=== PATIENT | female | born 1940 | race Caucasian/White ===

== ENCOUNTER 2017-12-07 12:34 | Emergency (ER) | payer OTHER ==
--- OUTSIDE RECORDS SUMMARY | 2017-12-07 12:37 | XMS REPORT | Clinical Summary ---
:1940 Author Organization [facility] Address [address] [place] [address] Care Team Providers Name Role Phone Asked, No Pcp Primary Care Provider Unavailable Allergies Active Allergy Reactions Severity Noted Date Comments Artane 12/21/2015 Aspirin 12/21/2015 Meperidine 12/21/2015 Diclofenac 12/21/2015 Indomethacin 12/21/2015 Metronidazole 12/21/2015 Other 12/21/2015 msg Penicillins 12/21/2015 Potassium Iodide 12/21/2015 Tetracycline 12/21/2015 Talwin Compound 12/21/2015 Tolmetin 12/21/2015 Tramadol-Acetaminophen Other (See Comments) 10/13/2017 Dizziness, Blood Pressure Problems Diazepam 12/21/2015 Rofecoxib 12/21/2015 Current Medications Prescription Sig. Disp. Refills Start Date End Date Status amLODIPine Take 5 mg by 10/11/2015 Active (NORVASC) 5 MG mouth 2 (two) tablet times a day. carvedilol (COREG) Take 25 mg by 10/09/2015 Active 25 MG tablet mouth 2 (two) times a day. DILANTIN EXTENDED Take 150 mg by 10/23/2015 Active 100 mg ER capsule mouth daily. calcium Take 1 tablet Active citrate-vitamin D3 by mouth 2 (CITRACAL+D) (two) times a 315-200 mg-unit per day. tablet multivitamin with Take 1 tablet Active minerals tablet by mouth daily. artificial 1 drop as Active tears,hypromellose, needed. (SYSTANE) 0.3 % gel cholecalciferol, Take 1,000 Active vitamin D3, Units by mouth (VITAMIN D3) 1,000 daily. unit tablet phenytoin Chew 50 mg Active (DILANTIN) 50 mg daily. chewable tablet furosemide (LASIX) 04/05/2017 Active 40 mg tablet doxazosin (CARDURA) 02/23/2017 Active 4 MG tablet levETIRAcetam Take 500 mg by 02/15/2017 Active (KEPPRA) 500 MG mouth 2 (two) tablet times a day. rosuvastatin 03/04/2017 Active (CRESTOR) 20 MG tablet sennosides (NATURAL Take 1 tablet Active LAXATIVE) 25 mg by mouth as tablet needed. fexofenadine Take 60 mg by Active (SHAKIRA) 60 MG mouth daily. tablet azaTHIOprine TAKE 3 TABLETS 270 tablet 3 06/17/2017 Active (IMURAN) 50 mg (150 MG) EVERY 9 tablet DAY predniSONE TAKE 2 TABLETS 180 tablet 0 09/07/2017 Active (DELTASONE) 1 mg EVERY DAY 9 tablet predniSONE TAKE 1 TO 4 360 tablet 1 11/05/2017 Active (DELTASONE) 5 mg TABLETS EVERY 9 tablet MORNING DIRECTED DURING VISIT doxazosin (CARDURA) 8 mg daily. 10/09/2015 Discontinued 1 MG tablet 7 levETIRAcetam Take 500 mg by 10/09/2015 (KEPPRA) 500 MG mouth 2 (two) 7 tablet times a day. triamterene-hydroch Take 1 tablet 10/09/2015 Discontinued lorothiazid by mouth 7 (MAXZIDE-25) daily. 37.5-25 mg per tablet predniSONE TAKE 2 TABLETS 180 tablet 1 10/01/2016 Discontinued (DELTASONE) 1 mg EVERY DAY 7 tablet rosuvastatin Take 10 mg by Discontinued (CRESTOR) 10 MG mouth daily. 7 tablet azaTHIOprine Take 3 tablets 270 tablet 1 10/08/2016 Discontinued (IMURAN) 50 mg (150 mg total) 7 tablet by mouth daily. predniSONE TAKE 1 TO 4 180 tablet 1 11/18/2016 Discontinued (DELTASONE) 5 mg TABLETS EVERY 7 tablet MORNING DIRECTED DURING VISIT predniSONE TAKE 2 TABLETS 180 tablet 1 12/22/2016 Discontinued (DELTASONE) 1 mg EVERY DAY 8 tablet azaTHIOprine TAKE 3 TABLETS 270 tablet 1 2016 Discontinued (IMURAN) 50 mg (150 MG TOTAL) 8 tablet DAILY predniSONE TAKE 1 TO 4 360 tablet 1 01/19/2017 Discontinued (DELTASONE) 5 mg TABLETS EVERY 8 tablet MORNING DIRECTED DURING VISIT predniSONE TAKE 1 TO 4 360 tablet 1 06/15/2017 Discontinued (DELTASONE) 5 mg TABLETS EVERY 8 tablet MORNING DIRECTED DURING VISIT predniSONE TAKE 2 TABLETS 180 tablet 0 07/06/2017 Discontinued (DELTASONE) 1 mg EVERY DAY 8 tablet Active Problems Problem Noted Date Localized edema 10/13/2017 Right foot pain 04/13/2017 Primary osteoarthritis of right shoulder 10/08/2016 Inflammatory arthritis 10/08/2016 Chronic right shoulder pain 04/10/2016 Renal insufficiency 01/09/2016 Diastolic dysfunction 01/09/2016 Hypercalcemia 01/09/2016 Erythema nodosum 12/21/2015 Overview: Ankle arthritis. No underlying disease ever found. 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 COPD (chronic obstructive pulmonary disease) 12/21/2015 Seizure 12/21/2015 Osteopenia 12/21/2015 HTN (hypertension) 12/21/2015 Dry eyes 12/21/2015 Encounters Date Type Specialty Care Team Description 11/04/2017 Refill Rheumatology Gisell Up MD 10/14/2017 Orders Only Rheumatology ProviderCesar MD 10/13/2017 Office Visit Rheumatology Gisell Up Erythema nodosum ( Primary Dx); Renal insufficiency; Localized edema; Inflammatory arthritis 09/07/2017 Refill Rheumatology Gisell Up MD 07/03/2017 Refill Rheumatology Gisell Up MD 06/17/2017 Refill Rheumatology Gisell Up MD 06/15/2017 Refill Rheumatology Gisell Up MD 04/14/2017 Orders Only Rheumatology ProviderCesar MD 04/13/2017 Hospital Encounter Radiology Gisell Up, Right foot pain 04/13/2017 Office Visit Rheumatology Gisell Up, Subdeltoid bursitis, right (Primary Dx); Erythema nodosum; Primary osteoarthritis of right shoulder; High risk medication use; Hypercalcemia; Chronic renal insufficiency, stage III (moderate); Right foot pain 01/19/2017 Refill Rheumatology Gisell Up MD 12/22/2016 Refill Rheumatology Gisell Up MD 12/21/2016 Refill Rheumatology Gisell Up MD after 12/06/2016 Family History Medical History Relation Name Comments Merced's thyroiditis Other granddaughter Relation Name Status Comments Other granddaughter Social History Tobacco Use Types Packs/Day Years Used Date Unknown If Ever Smoked Smokeless Tobacco: Never Used Sex Assigned at Date Recorded Not on file Last Filed Vital Signs Vital Sign Reading Time Taken Blood Pressure 175/85 10/13/2017 11:12 AM CDT Pulse 76 10/13/2017 11:12 AM CDT Temperature - - Respiratory Rate - - Oxygen Saturation - - Inhaled Oxygen Concentration - - Weight 66.2 kg (146 lb) 10/13/2017 11:12 AM CDT Height 162.6 cm (5' 4") 10/13/2017 11:12 AM CDT Body Mass Index 25.06 10/13/2017 11:12 AM CDT Plan of Treatment Date Type Specialty Care Team Description 04/26/2018 [place] [address] [place] [address] [phone] Health Maintenance Due Date Last Done Comments SHINGRIX VACCINE (#1) 12/22/1989 ZOSTER VACCINE 1999 PNEUMOCOCCAL POLYSACCHARIDE VACCINE AGE 65 AND OVER 12/22/2004 PNEUMOCOCCAL-13 12/22/2004 INFLUENZA VACCINE 12/30/2017 Procedures Procedure Name Priority Date/Time Associated Comments Diagnosis [id number] Routine 10/12/2017 12:00 AM CDT [id number] Routine 07/08/2017 12:00 AM [employer] XR HIP 1 VIEW RIGHT Routine 07/03/2017 12:00 AM [employer] XR FOOT 3+ VW RIGHT Routine 04/13/2017 12:21 Right foot pain Results for this PM [employer] procedure are in the results section. WI ARTHROCENTESIS Routine 04/13/2017 11:23 Subdeltoid Results for this ASPIR&/INJ MAJOR AM [employer] bursitis, right procedure are in JT/BURSA W/O US the results section. [id number] Routine 04/08/2017 12:00 AM [employer] [id number] Routine 01/05/2017 12:00 AM CDT after 12/06/2016 Results Miscellaneous Lab Result (10/12/2017)Only the most recent of4 resultswithin the time period is included. Specimen Blood Narrative Performed At XR Hip 1 View Right (07/03/2017) Narrative Performed At XR Foot 3+ Vw Right (04/13/2017 12:21 PM) Narrative Performed At EXAMINATION:XR FOOT 3VW RIGHT [facility] CLINICAL HISTORY:M79.671 Pain in right foot, Pain right mid-tarsus area.History of erythemat nodosum.No synovitis. COMPARISON:None available at this time. IMPRESSION: 1. No fracture, malalignment, or osseous destructive lesion of the right foot. 2. Joint spaces are maintained. No significant degenerative changes. 3. Soft tissues are unremarkable. [id number] Procedure Note Hm Interface, Radiology Results Incoming - 04/13/2017 1:12 PM [employer] EXAMINATION: XR FOOT 3 VW RIGHT CLINICAL HISTORY: M79.671 Pain in right foot, Pain right mid-tarsus area. History of erythemat nodosum. No synovitis. COMPARISON: None available at this time. IMPRESSION: 1. No fracture, malalignment, or osseous destructive lesion of the right foot. 2. Joint spaces are maintained. No significant degenerative changes. 3. Soft tissues are unremarkable. [id number] Performing Organization Address City/State/Zipcode Phone Number [facility] [address] [place] [address] Large Joint Arthrocentesis (04/13/2017 11:23 AM) Narrative Performed At Gisell Up MD 04/13/2017 11:23 AM Large Joint Arthrocentesis Consent given by: patient Supporting Documentation Indications: pain Procedure Details Ultrasound guided: no Platelet Rich Plasma Used: no PRP UsedLocation: shoulder - R subacromial bursa Right side: Needle size: 23 G Approach: lateral Right shoulder medications administered: 1 mL lidocaine 10 mg/mL (1 %); 40 mg methylPREDNISolone acetate 80 mg/mL after 12/06/2016 Insurance Payer Benefit Plan / Group Subscriber ID Type Phone Address [employer]ARE HU[employer] MEDICARE PPO/PFFS/[facility] xxxxxxxxx PPO Work: [id number] [phone] [place] [phone] Home:
[2017-12-07] MEDS ORDERED: HEPARIN/D5W 25,000 UNIT/500 ML BAG IV ONE (16:22)
--- NOTE | 2017-12-07 16:28 | ER ---
Nurse's Notes [facility] Name: Criselda Medellin Age: 76 yrs Sex: Female : 1940 Arrival Date: 12/07/2017 Time: 12:37 Bed 18 Private MD: Singh Bauman L Diagnosis: Acute embolism and thrombosis of other specified deep vein of lower extremity Presentation: 12/07 12:40 Presenting complaint: Patient states: right lower leg swelling since Thursday. Pt's aa5 daughter states "Dr. Bauman put her on Eliquis for a blood clot but the leg swelling is getting worse now". Transition of care: patient was not received from another setting of care. Onset of symptoms was November 2017. Risk Assessment: Do you want to hurt yourself or someone else? Patient reports no desire to harm self or others. Initial Sepsis Screen: Does the patient meet any 2 criteria? No. Patient's initial sepsis screen is negative. Does the patient have a suspected source of infection? No. Patient's initial sepsis screen is negative. Care prior to arrival: None. 12:40 Method Of Arrival: Wheelchair aa5 12:40 Acuity: LIZ 3 aa5 Historical: - Allergies: 12:44 PROPOFOL; aa5 12:44 Aspirin; aa5 12:44 Demerol; aa5 12:44 PENTAZOCINE; aa5 12:44 potassium iodide; aa5 12:44 METRONIDAZOLE; aa5 12:44 TETRACYCLINES; aa5 12:44 Indomethacin; aa5 12:44 PENICILLINS; aa5 12:44 Rofecoxib; aa5 12:44 diazepam; aa5 - PMHx: 12:44 COPD; Seizures; Migraines; vertigo; picepital tendonitis; bursitis; ulnar neuropathy; aa5 erythema nodosum; Rheumatoid Arthritis; Osteoporosis; Hypertension; - PSHx: 12:41 ankle; aa5 - Immunization history:: Pneumococcal vaccine is not up to date, Flu vaccine is not up to date. - Social history:: Smoking status: Patient/guardian denies using tobacco. - Ebola Screening: : No symptoms or risks identified at this time. Screenin:00 Abuse screen: Denies threats or abuse. Denies injuries from another. Nutritional jl7 screening: No deficits noted. Tuberculosis screening: No symptoms or risk factors identified. Fall Risk IV access (20 points). Total Tyler Fall Scale indicates No Risk (0-24 pts). Assessment: 14:00 General: Appears in no apparent distress. uncomfortable, Behavior is calm, cooperative, jl7 appropriate for age. Pain: Complains of pain in right leg Pain does not radiate. Pain currently is 5 out of 10 on a pain scale. Quality of pain is described as aching, Is continuous. Neuro: Level of Consciousness is awake, alert, obeys commands, Oriented to person, place, time, situation. Cardiovascular: Heart tones present Patient's skin is warm and dry. Pulses Doppler used for right dorsalis pedis pulse Edema is 2+ to right toes. Respiratory: Airway is patent Respiratory effort is even, unlabored, Respiratory pattern is regular, symmetrical, Breath sounds are clear bilaterally. Denies shortness of breath. GI: No signs and/or symptoms were reported involving the gastrointestinal system. : No signs and/or symptoms were reported regarding the genitourinary system. EENT: No signs and/or symptoms were reported regarding the EENT system. Derm: Skin is pink, warm \\T\\ dry. 15:00 Reassessment: No changes from previously documented assessment. Patient and/or family jl7 updated on plan of care and expected duration. Pain level reassessed. Patient is alert, oriented x 3, equal unlabored respirations, skin warm/dry/pink. 16:00 Reassessment: Patient and/or family updated on plan of care and expected duration. Pain jl7 level reassessed. Patient is alert, oriented x 3, equal unlabored respirations, skin warm/dry/pink. 17:00 Reassessment: Patient and/or family updated on plan of care and expected duration. Pain jl7 level reassessed. Patient is alert, oriented x 3, equal unlabored respirations, skin warm/dry/pink. 17:57 Reassessment: EMS here to transport pt to [facility] in [place]. jl7 Vital Signs: 12:45 BP 158 / 81; Pulse 84; Resp 16 S; Temp 97.5(TE); Pulse Ox 96% on R/A; Weight 67.59 kg aa5 (R); Height 5 ft. 2 in. (157.48 cm) (R); Pain 8/10; 14:00 BP 146 / 71; Pulse 81; Resp 16; Pulse Ox 97% ; jl7 15:00 BP 145 / 73; Pulse 80; Resp 16; Pulse Ox 96% ; jl7 16:00 BP 147 / 71; Pulse 80; Resp 16; Pulse Ox 96% ; jl7 17:00 BP 152 / 73; Pulse 82; Resp 16; Pulse Ox 97% ; jl7 18:00 BP 145 / 72; Pulse 76; Resp 16; Pulse Ox 98% on R/A; jl7 12:45 Body Mass Index 27.25 (67.59 kg, 157.48 cm) aa5 ED Course: 12:37 Patient arrived in ED. sb2 12:38 Singh Bauman MD is Private Physician. sb2 12:41 Triage completed. aa5 12:41 Arm band placed on. aa5 13:37 Lenka Leblanc RN is Primary Nurse. jl7 13:46 Wilfrid Curiel MD is Attending Physician. gs 14:00 Patient has correct armband on for positive identification. Placed in gown. Bed in low jl7 position. Call light in reach. Side rails up X 1. Pulse ox on. NIBP on. 15:30 initiated a transfer with Jamilah at the [facility] transfer center \\T\\[phone]. eb 16:26 \\T\\[id number] connected the vascular surgeon with Dr. Curiel \\T\\ [address] Gatica connected eb with Dr. Curiel for patient transfer consultation. \\T\\[id number] Dr. Gatica accepted the patient in transfer and administrative approval was given at this time by Janell Lux. Report to be called to [phone] patient going to room 1414. 16:30 Initial lab(s) drawn, by me, sent to lab. Inserted saline lock: 20 gauge in left jl7 forearm, using aseptic technique. Blood collected. 16:49 US Extremity Venous Unilateral Ltd In Process Unspecified. EDMS 16:49 Ultrasound completed. Patient tolerated well. Note: us done portable/bedside. lc3 17:00 Inserted saline lock: 22 gauge in right forearm, using aseptic technique. jl7 18:20 Patient transferred, IV remains in place. intact, No redness/swelling at site. jl7 18:20 No provider procedures requiring assistance completed. jl7 Administered Medications: 17:00 Drug: Heparin (DVT/PE Drip) 18 units/kg/hr - (HEParin 09089 units, D5W 500 ml) jl7 {Co-Signature: zandra (Jamilah Devlin RN).} {Note: Infusion started at 1200 units/hr.} Route: IV; Rate: 18 units/kg; Site: left forearm; 18:16 Follow up: IV Status: Infusion continued upon transfer jl7 Outcome: 16:28 ER care complete, transfer ordered by MD. alonzo 18:19 Transferred by ground EMS to [facility], Transfer form completed. jl7 X-rays sent w/ patient. 18:19 Condition: stable 18:19 Discharge instructions given to patient, family, Instructed on the need for transfer, Demonstrated understanding of instructions. 18:20 Patient left the ED. jl7 Signatures: Dispatcher [employer] Arianne Barajas, RN RN aa5 Heber Oneal Jahala RN RN jl7 Wilfrid Curiel MD MD gs Billeau, Sheri sb2 Botello, Elizabeth eb Amanda Myers RN aj
--- NOTE | 2017-12-07 16:28 | EDPHYS ---
Physician Documentation [facility] Name: Criselda Medellin Age: 76 yrs Sex: Female : 1940 Arrival Date: 12/07/2017 Time: 12:37 Bed 18 Private MD: Singh Bauman L ED Physician Wilfrid Curiel HPI: 12/07 16:30 This 76 yrs old Female presents to ER via Wheelchair with complaints of Leg gs Swelling. 16:30 The patient presents with swelling, tenderness. The complaints affect the right gs quadriceps, right knee and right lugo. Onset: The symptoms/episode began/occurred 5 day(s) ago, and became worse and became persistent. Modifying factors: The symptoms are alleviated by nothing. the symptoms are aggravated by nothing. Associated signs and symptoms: Pertinent negatives numbness, warmth. Severity of symptoms: At their worst the symptoms were severe. The patient has not experienced similar symptoms in the past. Historical: - Allergies: 12:44 PROPOFOL; aa5 12:44 Aspirin; aa5 12:44 Demerol; aa5 12:44 PENTAZOCINE; aa5 12:44 potassium iodide; aa5 12:44 METRONIDAZOLE; aa5 12:44 TETRACYCLINES; aa5 12:44 Indomethacin; aa5 12:44 PENICILLINS; aa5 12:44 Rofecoxib; aa5 12:44 diazepam; aa5 - PMHx: 12:44 COPD; Seizures; Migraines; vertigo; picepital tendonitis; bursitis; ulnar neuropathy; aa5 erythema nodosum; Rheumatoid Arthritis; Osteoporosis; Hypertension; - PSHx: 12:41 ankle; aa5 - Immunization history:: Pneumococcal vaccine is not up to date, Flu vaccine is not up to date. - Social history:: Smoking status: Patient/guardian denies using tobacco. - Ebola Screening: : No symptoms or risks identified at this time. ROS: 16:30 All other systems are negative. gs Exam: 16:30 Head/Face: Normocephalic, atraumatic. Eyes: Pupils equal round and reactive to light, gs extra-ocular motions intact. Lids and lashes normal. Conjunctiva and sclera are non-icteric and not injected. Cornea within normal limits. Periorbital areas with no swelling, redness, or edema. ENT: Nares patent. No nasal discharge, no septal abnormalities noted. Tympanic membranes are normal and external auditory canals are clear. Oropharynx with no redness, swelling, or masses, exudates, or evidence of obstruction, uvula midline. Mucous membranes moist. Neck: Trachea midline, no thyromegaly or masses palpated, and no cervical lymphadenopathy. Supple, full range of motion without nuchal rigidity, or vertebral point tenderness. No Meningismus. Chest/axilla: Normal chest wall appearance and motion. Nontender with no deformity. No lesions are appreciated. Cardiovascular: Regular rate and rhythm with a normal S1 and S2. No gallops, murmurs, or rubs. Normal PMI, no JVD. No pulse deficits. Respiratory: Lungs have equal breath sounds bilaterally, clear to auscultation and percussion. No rales, rhonchi or wheezes noted. No increased work of breathing, no retractions or nasal flaring. Abdomen/GI: Soft, non-tender, with normal bowel sounds. No distension or tympany. No guarding or rebound. No evidence of tenderness throughout. Back: No spinal tenderness. No costovertebral tenderness. Full range of motion. 16:30 Neuro: Awake and alert, GCS 15, oriented to person, place, time, and situation. Cranial nerves II-XII grossly intact. Motor strength 5/5 in all extremities. Sensory grossly intact. Cerebellar exam normal. Normal gait. 16:30 Constitutional: The patient appears alert, awake. 16:30 Musculoskeletal/extremity: Pulses: are normal with no appreciated deficits, DVT Exam: pain, swelling, tenderness, positive Homans' sign noted on exam, bluish discoloration, that is marked, of the right leg. 16:30 Skin: Appearance: Color: pale. Vital Signs: 12:45 BP 158 / 81; Pulse 84; Resp 16 S; Temp 97.5(TE); Pulse Ox 96% on R/A; Weight 67.59 kg aa5 (R); Height 5 ft. 2 in. (157.48 cm) (R); Pain 8/10; 14:00 BP 146 / 71; Pulse 81; Resp 16; Pulse Ox 97% ; jl7 15:00 BP 145 / 73; Pulse 80; Resp 16; Pulse Ox 96% ; jl7 16:00 BP 147 / 71; Pulse 80; Resp 16; Pulse Ox 96% ; jl7 17:00 BP 152 / 73; Pulse 82; Resp 16; Pulse Ox 97% ; jl7 18:00 BP 145 / 72; Pulse 76; Resp 16; Pulse Ox 98% on R/A; jl7 12:45 Body Mass Index 27.25 (67.59 kg, 157.48 cm) aa5 MDM: 14:44 Patient medically screened. 16:30 Differential diagnosis: dvt, phlegmasia alba, phlegmasia cerulo, arterial occlusion. Data reviewed: vital signs, nurses notes. Response to treatment: There is no appreciated change of the patient's symptoms at this time, and as a result, I will tx. 12/07 15:53 Order name: CBC with Diff; Complete Time: 17:59 12/07 15:53 Order name: Basic Metabolic Panel; Complete Time: 17:59 12/07 15:12 Order name: US Extremity Venous Unilateral Ltd; Complete Time: 17:09 Administered Medications: 17:00 Drug: Heparin (DVT/PE Drip) 18 units/kg/hr - (HEParin 90445 units, D5W 500 ml) jl7 {Co-Signature: zandra (Jamilah Devlin RN).} {Note: Infusion started at 1200 units/hr.} Route: IV; Rate: 18 units/kg; Site: left forearm; 18:16 Follow up: IV Status: Infusion continued upon transfer jl7 Disposition: 12/07/17 16:[address] [facility]. Diagnosis is Acute embolism and thrombosis of other specified deep vein of lower extremity. - Reason for transfer: Higher level of care. - Accepting physician is adio. - Condition is Stable. - Problem is new. - Symptoms have improved. Critical care time excluding procedures: 16:30 Critical care time: Bedside Care: 10 minutes, Consultation: 10 minutes, Family gs Intervention: 10 minutes. Total time: 30 minutes Signatures: Dispatcher [employer] EDArianne Bolivar RN RN aa5 Lenka Leblanc RN RN jl7 Wilfrid Curiel MD MD gs Amanda Myers RN aj Corrections: (The following items were deleted from the chart) 18:20 16:28 12/07/2017 16:[address] [facility]. Diagnosis is jl7 Acute embolism and thrombosis of other specified deep vein of lower extremity. Reason for transfer: Higher level of care. Accepting physician is ariane. Condition is Stable. Problem is new. Symptoms have improved. gs
--- NOTE | 2017-12-07 17:07 | RAD REPORT ---
EXAM DESCRIPTION: VASExtremity Venous Uni Ltd12/07/2017 4:50 pm CLINICAL HISTORY: Right leg pain and swelling. COMPARISON: December 01, 2017 FINDINGS: Partial thrombus has developed within the right common femoral vein. The vein is partially compressible. Echogenic material consistent with thrombus has developed within the proximal superfic ial femoral vein. The vein is noncompressible. Echogenic material persists within the mid and distal right superficial femoral vein. Right popliteal vein is patent. Right posterior tibial vein is patent and compressible. IMPRESSION: Some progression in the thrombus since the December 01 exam. Acute/subacute thrombus is seen within the right common and right superficial femoral veins.
[2017-12-07 17:15] LABS: Absolute Lymphocytes (CBC) 1.2 K/uL (0.7-4.9); Absolute Monocytes 0.8 K/uL (0.1-1.3); Absolute Neutrophil 4.4 K/uL (1.8-8.0); Basophils % 0.6 % (0-1.3); Eosinophils % 0.8 % (0-4.4); Hematocrit 37.1 % (36.0-45.0); MCH 36.3 pg (27.0-35.0); MCV 104.4 fL (80-100); MPV 7.6 fL (7.6-11.3); Monocytes % 12.3 % (3.3-12.3); RBC Red Blood Cell Count 3.55 M/uL (3.86-4.86)
[2017-12-07 17:31] LABS: Potassium 3.6 mmol/L (3.5-5.1)
== END 2017-12-07 18:20 | disposition short-term general hospital (02) ==
LOC: ER 12:34
DX: I82.401 Acute embolism and thrombosis of unspecified deep veins of right lower extremity (principal); I10 Essential (primary) hypertension; J44.9 Chronic obstructive pulmonary disease, unspecified; Z88.6 Allergy status to analgesic agent; Z88.4 Allergy status to anesthetic agent; Z88.3 Allergy status to other anti-infective agents; Z88.0 Allergy status to penicillin; Z88.8 Allergy status to other drugs, medicaments and biological substances
CPT/HCPCS: 36415; 80048; 85025; 93971; 96365; 99285

== ENCOUNTER 2018-01-21 22:30 | Emergency (ER) | payer OTHER ==
--- OUTSIDE RECORDS SUMMARY | 2018-01-21 22:32 | XMS REPORT | Clinical Summary ---
:1940 Author Organization [facility] Address [address] [place] [address] Care Team Providers Name Role Phone Asked, [...] daily. 10/09/2015 Discontinued 1 MG tablet 7 triamterene-hydroch Take 1 tablet 10/09/2015 Discontinued lorothiazid by mouth 7 (MAXZIDE-25) daily. 37.5-25 mg per tablet rosuvastatin Take 10 mg by Discontinued (CRESTOR) 10 MG mouth daily. 7 tablet predniSONE TAKE 2 TABLETS 180 tablet [...] 10/13/2017 Office Visit Rheumatology Gisell Up Erythema nodsilvia ( Primary Dx); Renal insufficiency; Localized edema; Inflammatory arthritis 09/07/2017 Refill Rheumatology Gisell Up MD 07/03/2017 Refill Rheumatology Giesll Up MD 06/17/2017 Refill Rheumatology Gisell Up MD 06/15/2017 Refill Rheumatology Gisell Up MD 04/14/2017 Orders Only Rheumatology ProviderCesar MD 04/13/2017 Hospital Encounter Radiology Gisell Up, Right foot pain 04/13/2017 Office Visit Rheumatology Gisell Up, Subdeltoid bursitis, right (Primary Dx); Erythema nodosum; Primary osteoarthritis of right shoulder; High risk medication use; Hypercalcemia; Chronic renal insufficiency, stage III (moderate); Right foot pain after 01/20/2017 Family History Medical History Relation Name Comments [...] 04/26/2018 [place] [address] [facility] [place] [address] [place] [address] [phone] Health Maintenance Due Date Last Done Comments SHINGRIX VACCINE (#1) 12/22/1989 ZOSTER VACCINE 1999 PNEUMOCOCCAL POLYSACCHARIDE VACCINE AGE 65 AND OVER 12/22/2004 PNEUMOCOCCAL-13 12/22/2004 INFLUENZA VACCINE 12/30/2017 Procedures Procedure Name Priority Date/Time Associated Comments Diagnosis [id number] Routine 10/12/2017 12:00 AM CDT [id number] Routine 07/08/2017 12:00 AM BOOKS BINDER XR HIP 1 VIEW RIGHT Routine 07/03/2017 12:00 AM BOOKS BINDER XR FOOT 3+ VW RIGHT Routine 04/13/2017 12:21 Right foot pain Results for this PM BOOKS BINDER procedure are in the results section. [place] ARTHROCENTESIS Routine 04/13/2017 11:23 Subdeltoid Results for this ASPIR&/INJ MAJOR AM BOOKS BINDER bursitis, right procedure are in JT/BURSA W/O US the results section. [id number] Routine 04/08/2017 12:00 AM BOOKS BINDER after 01/20/2017 Results Miscellaneous Lab Result (10/12/2017)Only the most recent of3 resultswithin the time period is included. Specimen Blood Narrative Performed At XR Hip 1 View Right (07/03/2017) Narrative Performed At XR Foot 3+ Vw Right (04/13/2017 12:21 PM) Narrative Performed At EXAMINATION:XR FOOT 3VW RIGHT [facility] CLINICAL HISTORY:M79.671 Pain in right foot, Pain right mid-tarsus area.History of erythemat nodosum.No synovitis. COMPARISON:None available at this time. IMPRESSION: 1. No fracture, malalignment, or osseous destructive lesion of the right foot. 2. Joint spaces are maintained. No significant degenerative changes. 3. Soft tissues are unremarkable. [id number] Procedure Note Hm Interface, Radiology Results Incoming - 04/13/2017 1:12 PM BOOKS BINDER EXAMINATION: XR FOOT 3 VW RIGHT CLINICAL HISTORY: M79.671 Pain in right foot, Pain right mid-tarsus area. History of erythemat nodosum. No synovitis. COMPARISON: None available at this time. IMPRESSION: 1. No fracture, malalignment, or osseous destructive lesion of the right foot. 2. Joint spaces are maintained. No significant degenerative changes. 3. Soft tissues are unremarkable. [id number] Performing Organization Address City/State/Zipcode Phone Number [facility] [address] [place] [address] Large Joint Arthrocentesis (04/13/2017 11:23 AM) Narrative [...] 40 mg methylPREDNISolone acetate 80 mg/mL after 01/20/2017 Insurance Payer Benefit Plan / Group Subscriber ID Type Phone Address [facility] HUMANA MEDICARE PPO/PFFS/ERS [facility] xxxxxxxxx PPO Work: [id number] [phone] [place], [place] [phone] Home: [phone] [facility]
--- NOTE | 2018-01-21 23:22 | ER ---
Nurse's Notes [facility] Name: Criselda Medellin Age: 77 yrs Sex: Female : 1940 Arrival Date: 01/21/2018 Time: 22:32 Bed 14 Private MD: Diagnosis: Acute embolism and thrombosis of deep veins of lower extremity Presentation: 01/21 22:49 Presenting complaint: Patient states: she is currently being treated for a DVT in her aa1 RLE and today she was told she has a DVT in her LLE as well. 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 Pt had blood work, Doppler, and CT scan done at this facility as an outpatient earlier today. Transition of care: patient was not received from another setting of care. Onset of symptoms was January 21, 2018. Risk Assessment: Do you want to hurt yourself or someone else? Patient reports no desire to harm self or others. Initial Sepsis Screen: Does the patient meet any 2 criteria? No. Patient's initial sepsis screen is negative. Does the patient have a suspected source of infection? No. Patient's initial sepsis screen is negative. Care prior to arrival: None. 22:49 Method Of Arrival: Ambulatory aa1 22:49 Acuity: LIZ 3 aa1 Historical: - Allergies: 22:55 Aspirin; aa1 22:55 Demerol; aa1 22:55 diazepam; aa1 22:55 Indomethacin; aa1 22:55 METRONIDAZOLE; aa1 22:55 PENICILLINS; aa1 22:55 PENTAZOCINE; aa1 22:55 potassium iodide; aa1 22:55 PROPOFOL; aa1 22:55 Rofecoxib; aa1 22:55 TETRACYCLINES; aa1 - Home Meds: 23:07 Dilantin Oral 50 mg daily [Active]; Dilantin Oral 100 mg daily [Active]; Keppra 500 mg aa1 Oral tab 1 tab 2 times per day [Active]; carvedilol 25 mg oral tab 1 tab 2 times per day [Active]; amlodipine 5 mg tab 1 tab twice a day [Active]; furosemide 40 mg Oral tab 1 tab once daily [Active]; doxazosin 1 mg oral tab 1 tab twice a day [Active]; azathioprine 50 mg Oral tab [Active]; Clonidine patch Oral [Active]; Multiple Vitamins oral tab daily [Active]; Vitamin C Oral daily [Active]; Sandra 180 mg Oral tab 1 tab once daily [Active]; Prednisone Oral [Active]; Lubricant Eye Drops ophthalmic [Active]; Systane 0.4-0.3 % ophthalmic drop as needed [Active]; Vitamin D Oral 1,000 unit daily [Active]; Stool Softener oral oral once daily [Active]; Eliquis 5 mg oral tab 1 tab 2 times per day [Active]; rosuvastatin 10 mg oral tab 1 tab once daily [Active]; - PMHx: 22:55 BURSITIS; COPD; Erythema nodosum; Hypertension; Migraines; Osteoporosis; picepital aa1 tendonitis; Rheumatoid Arthritis; Seizures; ulnar neuropathy; Vertigo; DVT; 23:07 High Cholesterol; aa1 - PSHx: 22:55 ankle; aa1 - Immunization history:: Flu vaccine is not up to date. - Social history:: Smoking status: Patient/guardian denies using tobacco. - Ebola Screening: : No symptoms or risks identified at this time. Screenin:57 Abuse screen: Denies threats or abuse. Denies injuries from another. Nutritional aa1 screening: No deficits noted. Tuberculosis screening: No symptoms or risk factors identified. Fall Risk None identified. Assessment: 22:57 General: Appears in no apparent distress. comfortable, Behavior is calm, cooperative, aa1 appropriate for age. Pain: Denies pain. Neuro: Level of Consciousness is awake, alert, obeys commands, Oriented to person, place, time, situation, Moves all extremities. Full function. Cardiovascular: Denies chest pain, diaphoresis, lightheadedness, palpitations, shortness of breath. Respiratory: Airway is patent Respiratory effort is even, unlabored, Respiratory pattern is regular, symmetrical. GI: No signs and/or symptoms were reported involving the gastrointestinal system. : No signs and/or symptoms were reported regarding the genitourinary system. EENT: No signs and/or symptoms were reported regarding the EENT system. Derm: Skin is intact, is healthy with good turgor, Skin is pink, warm \T\ dry. Musculoskeletal: Circulation, motion, and sensation intact. Capillary refill < 3 seconds. 23:48 Reassessment: Patient appears in no apparent distress at this time. Patient is alert, aa1 oriented x 3, equal unlabored respirations, skin warm/dry/pink. Discussed d/c \T\ f/u instructions with pt \T\ family; denies questions or concerns at this time. Vital Signs: 22:55 BP 169 / 92; Pulse 83; Resp 18; Temp 97.4; Pulse Ox 96% on R/A; Weight 62.14 kg; Height aa1 5 ft. 2 in. (157.48 cm); Pain 0/10; 23:48 BP 142 / 80; Pulse 88; Resp 18; Pulse Ox 97% on R/A; Pain 0/10; aa1 22:55 Body Mass Index 25.06 (62.14 kg, 157.48 cm) aa1 ED Course: 22:32 Patient arrived in ED. rg4 22:41 Wilfrid Curiel MD is Attending Physician. gs 22:49 Mini Álvarez RN is Primary Nurse. aa1 22:51 Triage completed. aa1 22:55 Arm band placed on right wrist. Patient placed in an exam room, on a stretcher. aa1 22:57 Patient has correct armband on for positive identification. Bed in low position. Call aa1 light in reach. Pulse ox on. NIBP on. 23:20 Theresa Dumont MD is Referral Physician. gs 23:48 No provider procedures requiring assistance completed. Patient did not have IV access aa1 during this emergency room visit. Administered Medications: 23:26 Drug: Lovenox 1 mg/kg Route: Sub-Q; Site: right lower abdomen; ea 23:48 Follow up: Response: No adverse reaction aa1 Outcome: 23:21 Discharge ordered by . gs 23:48 Discharged to home ambulatory, with family. aa1 23:48 Condition: good 23:48 Discharge instructions given to patient, family, Instructed on discharge instructions, follow up and referral plans. medication usage, Demonstrated understanding of instructions, follow-up care, medications. 23:50 Patient left the ED. aa1 Signatures: Mini Álvarez RN RN aa Annalee Rushing 4 Sarika Burris RN RN ea Starr, Gregory, MD MD
--- NOTE | 2018-01-21 23:22 | EDPHYS ---
Physician Documentation [facility] Name: Criselda Medellin Age: 77 yrs Sex: Female : 1940 Arrival Date: 01/21/2018 Time: 22:32 Bed 14 Private MD: ED Physician Wilfrid Curiel HPI: 01/21 23:18 This 77 yrs old Female presents to ER via Ambulatory with complaints of Sent gs By Cole- Possible Bloodclot. 23:[address] and US extension of DVT sent by dr Victor. Onset: The symptoms/episode gs began/occurred 1 week(s) ago. Severity of symptoms: At their worst the symptoms were moderate in the emergency department the symptoms are unchanged. The patient has experienced similar episodes in the past, a few times. Historical: - Allergies: 22:55 Aspirin; aa1 22:55 Demerol; aa1 22:55 diazepam; aa1 22:55 Indomethacin; aa1 22:55 METRONIDAZOLE; aa1 22:55 PENICILLINS; aa1 22:55 PENTAZOCINE; aa1 22:55 potassium iodide; aa1 22:55 PROPOFOL; aa1 22:55 Rofecoxib; aa1 22:55 TETRACYCLINES; aa1 - Home Meds: 23:07 Dilantin Oral 50 mg daily [Active]; Dilantin Oral 100 mg daily [Active]; Keppra 500 mg aa1 Oral tab 1 tab 2 times per day [Active]; carvedilol 25 mg oral tab 1 tab 2 times per day [Active]; amlodipine 5 mg tab 1 tab twice a day [Active]; furosemide 40 mg Oral tab 1 tab once daily [Active]; doxazosin 1 mg oral tab 1 tab twice a day [Active]; azathioprine 50 mg Oral tab [Active]; Clonidine patch Oral [Active]; Multiple Vitamins oral tab daily [Active]; Vitamin C Oral daily [Active]; Sandra 180 mg Oral tab 1 tab once daily [Active]; Prednisone Oral [Active]; Lubricant Eye Drops ophthalmic [Active]; Systane 0.4-0.3 % ophthalmic drop as needed [Active]; Vitamin D Oral 1,000 unit daily [Active]; Stool Softener oral oral once daily [Active]; Eliquis 5 mg oral tab 1 tab 2 times per day [Active]; rosuvastatin 10 mg oral tab 1 tab once daily [Active]; - PMHx: 22:55 BURSITIS; COPD; Erythema nodosum; Hypertension; Migraines; Osteoporosis; picepital aa1 tendonitis; Rheumatoid Arthritis; Seizures; ulnar neuropathy; Vertigo; DVT; 23:07 High Cholesterol; aa1 - PSHx: 22:55 ankle; aa1 - Immunization history:: Flu vaccine is not up to date. - Social history:: Smoking status: Patient/guardian denies using tobacco. - Ebola Screening: : No symptoms or risks identified at this time. ROS: 23:18 All other systems are negative. gs Exam: 23:18 Cardiovascular: Regular rate and rhythm with a normal S1 and S2. No gallops, murmurs, gs or rubs. Normal PMI, no JVD. No pulse deficits. Respiratory: Lungs have equal breath sounds bilaterally, clear to auscultation and percussion. No rales, rhonchi or wheezes noted. No increased work of breathing, no retractions or nasal flaring. Abdomen/GI: Soft, non-tender, with normal bowel sounds. No distension or tympany. No guarding or rebound. No evidence of tenderness throughout. Skin: Warm, dry with normal turgor. Normal color with no rashes, no lesions, and no evidence of cellulitis. Neuro: Awake and alert, GCS 15, oriented to person, place, time, and situation. Cranial nerves II-XII grossly intact. Motor strength 5/5 in all extremities. Sensory grossly intact. Cerebellar exam normal. Normal gait. 23:18 Constitutional: The patient appears alert, awake. 23:18 Musculoskeletal/extremity: Extremities: all appear grossly normal, with no appreciated pain with palpation, Pulses: are normal with no appreciated deficits, Sensation intact. Vital Signs: 22:55 BP 169 / 92; Pulse 83; Resp 18; Temp 97.4; Pulse Ox 96% on R/A; Weight 62.14 kg; Height aa1 5 ft. 2 in. (157.48 cm); Pain 0/10; 23:48 BP 142 / 80; Pulse 88; Resp 18; Pulse Ox 97% on R/A; Pain 0/10; aa1 22:55 Body Mass Index 25.06 (62.14 kg, 157.48 cm) aa1 MDM: 22:57 Patient medically screened. gs 23:18 Data reviewed: vital signs, nurses notes. 23:18 Physician consultation: Theresa Waite MD would like medications started, cheri Lovenox, stop eliquis. Administered Medications: 23:26 Drug: Lovenox 1 mg/kg Route: Sub-Q; Site: right lower abdomen; ea 23:48 Follow up: Response: No adverse reaction aa1 Disposition: 01/21/18 23:21 Discharged to Home. Impression: Acute embolism and thrombosis of deep veins of lower extremity. - Condition is Stable. - Discharge Instructions: Deep Vein Thrombosis. - Medication Reconciliation Form, Thank You Letter, Antibiotic Education, Prescription Opioid Use form. - Follow up: Theresa Dumont MD; When: Tomorrow; Reason: Recheck today's complaints, Re-evaluation by your physician. Signatures: Mini Álvarez RN RN aa1 Sairka Burris RN RN ea CurielWilfrid holley MD MD Corrections: (The following items were deleted from the chart) 23:50 23:21 01/21/2018 23:21 Discharged to Home. Impression: Acute embolism and thrombosis of aa1 deep veins of lower extremity. Condition is Stable. Forms are Medication Reconciliation Form, Thank You Letter, Antibiotic Education, Prescription Opioid Use. Follow up: Theresa Waite; When: Tomorrow; Reason: Recheck today's complaints, Re-evaluation by your physician.
[2018-01-21] MEDS ORDERED: ENOXAPARIN 60 MG/0.6 ML SQ ONE (23:27)
== END 2018-01-21 23:50 | disposition home or self-care (01) ==
LOC: ER 22:30
DX: I82.4Z9 Acute embolism and thrombosis of unspecified deep veins of unspecified distal lower extremity (principal); I10 Essential (primary) hypertension; E78.00 Pure hypercholesterolemia, unspecified; J44.9 Chronic obstructive pulmonary disease, unspecified; G40.909 Epilepsy, unspecified, not intractable, without status epilepticus; Z88.1 Allergy status to other antibiotic agents; Z88.5 Allergy status to narcotic agent; Z88.6 Allergy status to analgesic agent; Z88.0 Allergy status to penicillin
CPT/HCPCS: 96372; 99283; J1650; 71260; 74177; 93971; Q9967

== ENCOUNTER 2018-03-29 12:24 | Emergency (ER) | payer OTHER ==
--- OUTSIDE RECORDS SUMMARY | 2018-03-29 12:26 | XMS REPORT | Clinical Summary ---
:1940 Author Organization [facility] Address [address] [place] [address] Care Team Providers Name Role Phone Asked, [...] Active (SHAKIRA) 60 MG mouth daily. tablet predniSONE TAKE 2 TABLETS 180 tablet 0 09/07/2017 Active (DELTASONE) 1 mg EVERY DAY 9 tablet predniSONE TAKE 1 TO 4 360 tablet 1 03/24/2018 Active (DELTASONE) 5 mg TABLETS EVERY 9 tablet MORNING DIRECTED DURING VISIT azaTHIOprine TAKE 3 TABLETS 270 tablet 0 03/24/2018 Active (IMURAN) 50 mg EVERY DAY 9 tablet doxazosin (CARDURA) 8 mg daily. 10/09/2015 Discontinued [...] EVERY 8 tablet MORNING DIRECTED DURING VISIT azaTHIOprine TAKE 3 TABLETS 270 tablet 3 06/17/2017 Discontinued (IMURAN) 50 mg (150 MG) EVERY 8 tablet DAY predniSONE TAKE 2 TABLETS 180 tablet 0 07/06/2017 Discontinued (DELTASONE) 1 mg EVERY DAY 8 tablet predniSONE TAKE 1 TO 4 360 tablet 1 11/05/2017 Discontinued (DELTASONE) 5 mg TABLETS EVERY 8 tablet MORNING DIRECTED DURING VISIT Active Problems Problem Noted Date Localized edema 10/13/2017 Right foot pain 04/13/2017 Primary osteoarthritis of right shoulder 10/08/2016 Inflammatory arthritis 10/08/2016 Chronic right shoulder pain 04/10/2016 Renal insufficiency 01/09/2016 Diastolic dysfunction 01/09/2016 Hypercalcemia 01/09/2016 Erythema nodosum 12/21/2015 Overview: Ankle arthritis. No underlying disease ever found. 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 COPD (chronic obstructive pulmonary disease) ([facility]) 12/21/2015 Seizure (HCC) 12/21/2015 Osteopenia 12/21/2015 HTN (hypertension) 12/21/2015 Dry eyes 12/21/2015 Encounters Date Type Specialty Care Team Description 03/24/2018 Refill Rheumatology Gisell Up MD 02/23/2018 Orders Only Rheumatology Cesar Mccarty MD 11/04/2017 Refill Rheumatology Gisell Up MD 10/14/2017 [...] Gisell Up, Subdeltoid bursitis, right (Primary Dx); MD Salguero nodsilvia; Primary osteoarthritis of right shoulder; High risk medication use; Hypercalcemia; Chronic renal insufficiency, stage III (moderate); Right foot pain after 03/28/2017 Family History Medical History Relation Name Comments [...] 04/26/2018 [place] [address] [facility] [address] [place] [address] [phone] Health Maintenance Due Date Last Done Comments SHINGRIX VACCINE (#1) 12/22/1989 ZOSTER VACCINE 1999 PNEUMOCOCCAL POLYSACCHARIDE VACCINE AGE 65 AND OVER 12/22/2004 PNEUMOCOCCAL-13 12/22/2004 INFLUENZA VACCINE 12/30/2017 Procedures Procedure Name Priority Date/Time Associated Comments Diagnosis MAMMO DIAGNOSTIC W CAD Routine 02/12/2018 12:00 BILATERAL AM CDT [id number] Routine 10/12/2017 12:00 AM CDT [id number] Routine 07/08/2017 12:00 AM PRODUCTION STAGE MANAGER XR HIP 1 VIEW RIGHT Routine 07/03/2017 12:00 AM PRODUCTION STAGE MANAGER XR FOOT 3+ VW RIGHT Routine 04/13/2017 12:21 Right foot pain Results for this PM PRODUCTION STAGE MANAGER procedure are in the results section. [place] ARTHROCENTESIS Routine 04/13/2017 11:23 Subdeltoid Results for this ASPIR&/INJ MAJOR AM PRODUCTION STAGE MANAGER bursitis, right procedure are in JT/BURSA W/O US the results section. [id number] Routine 04/08/2017 12:00 AM PRODUCTION STAGE MANAGER after 03/28/2017 Results Mammo Diagnostic w Cad Bilateral (02/12/2018) Narrative Performed At Miscellaneous Lab Result (10/12/2017)Only the most recent [...] degenerative changes. 3. Soft tissues are unremarkable. [id number] Procedure Note Hm Interface, Radiology Results Incoming - 04/13/2017 1:12 PM PRODUCTION STAGE MANAGER EXAMINATION: XR FOOT 3 VW RIGHT CLINICAL HISTORY: M79.671 Pain in right foot, Pain right mid-tarsus area. History of erythemat nodosum. No synovitis. COMPARISON: None available at this time. IMPRESSION: 1. No fracture, malalignment, or osseous destructive lesion of the right foot. 2. Joint spaces are maintained. No significant degenerative changes. 3. Soft tissues are unremarkable. [id number] Performing Organization Address City/State/Zipcode Phone Number [facility] [address] [place] [address] Large Joint Arthrocentesis (04/13/2017 11:23 AM) Narrative [...] 40 mg methylPREDNISolone acetate 80 mg/mL after 03/28/2017 Insurance Payer Benefit Plan / Group Subscriber ID Type Phone Address [employer] MEDICARE [employer] MEDICARE PPO/PFFS/ERS [facility] xxxxxxxxx PPO Work: [address] [phone] [place], [place] [phone] Home: [phone] [facility]
--- NOTE | 2018-03-29 16:35 | EDPHYS ---
Physician Documentation [facility] Name: Criselda Medellin Age: 77 yrs Sex: Female : 1940 Arrival Date: 03/29/2018 Time: 12:25 Bed Treatment Private MD: Mendez Jaramillo C ED Physician Stoney Loya HPI: 03/29 16:28 This 77 yrs old Female presents to ER via Ambulatory with complaints of Skin megan Tear(s). 16:28 The patient or guardian complains of pain, that is acute. The complaints affect the megan dorsal aspect of left forearm. Context: The problem was sustained at a restaurant. Onset: The symptoms/episode began/occurred just prior to arrival. Treatment prior to arrival includes: no previous treatment. Severity of symptoms: At their worst the symptoms were mild, in the emergency department the symptoms are unchanged. The patient has not experienced similar symptoms in the past. Historical: - Allergies: 13:14 Aspirin; ph 13:14 Demerol; ph 13:14 diazepam; ph 13:14 Indomethacin; ph 13:14 METRONIDAZOLE; ph 13:14 PENICILLINS; ph 13:14 PENTAZOCINE; ph 13:14 potassium iodide; ph 13:14 PROPOFOL; ph 13:14 Rofecoxib; ph 13:14 TETRACYCLINES; ph - PMHx: 13:14 BURSITIS; COPD; DVT; Erythema nodosum; High Cholesterol; Hypertension; Migraines; ph Osteoporosis; picepital tendonitis; Rheumatoid Arthritis; Seizures; ulnar neuropathy; Vertigo; - PSHx: 13:14 ankle; ph - Immunization history:: Adult Immunizations up to date. - Family history:: not pertinent. - Social history:: Smoking status: Patient/guardian denies using tobacco, never smoked. - Ebola Screening: : No symptoms or risks identified at this time. ROS: 16:28 Constitutional: Negative for fever, chills, and weight loss, Eyes: Negative for injury, megan pain, redness, and discharge, ENT: Negative for injury, pain, and discharge, Neck: Negative for injury, pain, and swelling, Cardiovascular: Negative for chest pain, palpitations, and edema, Respiratory: Negative for shortness of breath, cough, wheezing, and pleuritic chest pain, Abdomen/GI: Negative for abdominal pain, nausea, vomiting, diarrhea, and constipation, Back: Negative for injury and pain, : Negative for injury, bleeding, discharge, and swelling, MS/Extremity: Negative for injury and deformity, Neuro: Negative for headache, weakness, numbness, tingling, and seizure, Psych: Negative for depression, anxiety, suicide ideation, homicidal ideation, and hallucinations, Allergy/Immunology: Negative for hives, rash, and allergies, Endocrine: Negative for neck swelling, polydipsia, polyuria, polyphagia, and marked weight changes, Hematologic/Lymphatic: Negative for swollen nodes, abnormal bleeding, and unusual bruising. 16:28 Skin: Positive for laceration(s), of the dorsal aspect of left forearm, skin tear. Exam: 16:28 Constitutional: This is a well developed, well nourished patient who is awake, alert, megan and in no acute distress. Head/Face: Normocephalic, atraumatic. Eyes: Pupils equal round and reactive to light, extra-ocular motions intact. Lids and lashes normal. Conjunctiva and sclera are non-icteric and not injected. Cornea within normal limits. Periorbital areas with no swelling, redness, or edema. ENT: Nares patent. No nasal discharge, no septal abnormalities noted. Tympanic membranes are normal and external auditory canals are clear. Oropharynx with no redness, swelling, or masses, exudates, or evidence of obstruction, uvula midline. Mucous membranes moist. Neck: Trachea midline, no thyromegaly or masses palpated, and no cervical lymphadenopathy. Supple, full range of motion without nuchal rigidity, or vertebral point tenderness. No Meningismus. Chest/axilla: Normal chest wall appearance and motion. Nontender with no deformity. No lesions are appreciated. Cardiovascular: Regular rate and rhythm with a normal S1 and S2. No gallops, murmurs, or rubs. Normal PMI, no JVD. No pulse deficits. Respiratory: Lungs have equal breath sounds bilaterally, clear to auscultation and percussion. No rales, rhonchi or wheezes noted. No increased work of breathing, no retractions or nasal flaring. Abdomen/GI: Soft, non-tender, with normal bowel sounds. No distension or tympany. No guarding or rebound. No evidence of tenderness throughout. Back: No spinal tenderness. No costovertebral tenderness. Full range of motion. Female : Normal external genitalia. MS/ Extremity: Pulses equal, no cyanosis. Neurovascular intact. Full, normal range of motion. Neuro: Awake and alert, GCS 15, oriented to person, place, time, and situation. Cranial nerves II-XII grossly intact. Motor strength 5/5 in all extremities. Sensory grossly intact. Cerebellar exam normal. Normal gait. Psych: Awake, alert, with orientation to person, place and time. Behavior, mood, and affect are within normal limits. 16:28 Skin: injury, laceration(s), the wound is approximately 3 cm(s), with a depth of .025 cm(s), of the dorsal aspect of left forearm. Vital Signs: 13:14 BP 154 / 74; Pulse 70; Resp 18; Temp 98.6(O); Pulse Ox 97% on R/A; ph 17:08 BP 150 / 74; Pulse 81; Resp 18; Pulse Ox 97% on R/A; tl3 MDM: 15:17 Patient medically screened. [facility] 16:31 Data reviewed: vital signs, nurses notes. [facility] 03/29 16:28 Order name: Wound Care: neosporin; Complete Time: 16:58 [facility] Administered Medications: No medications were administered Disposition: 03/29/18 16:33 Discharged to Home. Impression: Laceration without foreign body of left forearm - skin tear. - Condition is Stable. - Discharge Instructions: Skin Tear Care, Skin Tear Care, [id number]. - Medication Reconciliation Form, Thank You Letter, Antibiotic Education, Prescription Opioid Use form. - Follow up: Mendez Jaramillo MD; When: 2 - 3 days; Reason: Recheck today's complaints, Continuance of care, Re-evaluation by your physician. - Problem is new. - Symptoms have improved. Signatures: Stoney Loya MD MD cha Hall, Patricia, RN RN ph Heather Pate, RN RN tl3 Corrections: (The following items were deleted from the chart) 17:09 16:33 03/29/2018 16:33 Discharged to Home. Impression: Laceration without foreign body tl3 of left forearm - skin tear. Condition is Stable. Forms are Medication Reconciliation Form, Thank You Letter, Antibiotic Education, Prescription Opioid Use. Follow up: Mendez Jaramillo; When: 2 - 3 days; Reason: Recheck today's complaints, Continuance of care, Re-evaluation by your physician. Problem is new. Symptoms have improved. megan
--- NOTE | 2018-03-29 16:35 | ER ---
Nurse's Notes [facility] Name: Criselda Medellin Age: 77 yrs Sex: Female : 1940 Arrival Date: 03/29/2018 Time: 12:25 Bed Treatment Private MD: Mendez Jaramillo C Diagnosis: Laceration without foreign body of left forearm-skin tear Presentation: 03/29 13:09 Presenting complaint: Patient states: " My purse slid off of my arm and it ripped the ph skin on my arm and I take blood thinners." Injury to L forearm, bleeding controlled. Transition of care: patient was not received from another setting of care. Onset of symptoms was March 29, 2018. Risk Assessment: Do you want to hurt yourself or someone else? Patient reports no desire to harm self or others. Initial Sepsis Screen: Does the patient meet any 2 criteria? No. Patient's initial sepsis screen is negative. Does the patient have a suspected source of infection? No. Patient's initial sepsis screen is negative. Care prior to arrival: None. 13:09 Method Of Arrival: Ambulatory ph 13:09 Acuity: LIZ 4 ph Triage Assessment: 22:43 General: Appears in no apparent distress. Behavior is calm, cooperative, appropriate tl3 for age. Historical: - Allergies: 13:14 Aspirin; ph 13:14 Demerol; ph 13:14 diazepam; ph 13:14 Indomethacin; ph 13:14 METRONIDAZOLE; ph 13:14 PENICILLINS; ph 13:14 PENTAZOCINE; ph 13:14 potassium iodide; ph 13:14 PROPOFOL; ph 13:14 Rofecoxib; ph 13:14 TETRACYCLINES; ph - PMHx: 13:14 BURSITIS; COPD; DVT; Erythema nodosum; High Cholesterol; Hypertension; Migraines; ph Osteoporosis; picepital tendonitis; Rheumatoid Arthritis; Seizures; ulnar neuropathy; Vertigo; - PSHx: 13:14 ankle; ph - Immunization history:: Adult Immunizations up to date. - Family history:: not pertinent. - Social history:: Smoking status: Patient/guardian denies using tobacco, never smoked. - Ebola Screening: : No symptoms or risks identified at this time. Screenin:08 Abuse screen: Denies threats or abuse. Nutritional screening: No deficits noted. tl3 Tuberculosis screening: No symptoms or risk factors identified. Fall Risk None identified. Assessment: 17:08 Pain: Complains of pain in left arm. tl3 Vital Signs: 13:14 BP 154 / 74; Pulse 70; Resp 18; Temp 98.6(O); Pulse Ox 97% on R/A; ph 17:08 BP 150 / 74; Pulse 81; Resp 18; Pulse Ox 97% on R/A; tl3 ED Course: 12:25 Patient arrived in ED. as 12:25 Mendez Jaramillo MD is Private Physician. as 13:11 Triage completed. ph 13:15 Arm band placed on Patient placed in waiting room, Patient notified of wait time. ph 15:17 Stoney Loya MD is Attending Physician. [facility] 15:30 Heather Pate, KANDY is Primary Nurse. tl3 16:32 Mendez Jaramillo MD is Referral Physician. megan 17:08 Patient has correct armband on for positive identification. tl3 17:08 No provider procedures requiring assistance completed. Patient did not have IV access tl3 during this emergency room visit. Wound care: located on left arm was cleaned with soap and water, dressed with Neosporin, band aid. Administered Medications: No medications were administered Outcome: 16:33 Discharge ordered by . [facility] 17:08 Discharged to home ambulatory. tl3 17:08 Condition: stable 17:08 Discharge instructions given to patient, Instructed on discharge instructions, follow up and referral plans. Demonstrated understanding of instructions, follow-up care, wound care. 17:09 Patient left the ED. tl3 Signatures: Stoney Loya MD MD cha Martinez, Amelia as Hall, Patricia, RN RN Heather Pate, KANDY RN tl3
== END 2018-03-29 17:09 | disposition home or self-care (01) ==
LOC: ER 12:24
DX: S51.812A Laceration without foreign body of left forearm, initial encounter (principal); I10 Essential (primary) hypertension; J44.9 Chronic obstructive pulmonary disease, unspecified; W22.8XXA Striking against or struck by other objects, initial encounter; Y92.511 Restaurant or cafe as the place of occurrence of the external cause; Z79.01 Long term (current) use of anticoagulants; Z88.0 Allergy status to penicillin; Z86.718 Personal history of other venous thrombosis and embolism
CPT/HCPCS: 99283